=== PATIENT | female | born 1955 ===

== ENCOUNTER 2023-02-24 11:51 | Day surgery (SDC) | payer MEDICARE, BC, SELFPAY ==
--- NOTE | 2023-02-24 | PATH_ITS ---
[facility] Accession Number: [id number] No. of containers..03 Tissue . 01 Material submitted: . PART A: colon - DESCENDING COLON PART B: colon - RECTO-SIGMOID POLYP 15 PART C: colon - RECTO-SIGMOID 12 . 01 Diagnosis: A. Descending Colon, Biopsy: Colonic mucosa with mild melanosis coli. Negative for active, chronic, and microscopic colitis. Negative for dysplasia and malignancy. . B. Rectosigmoid Colon Polyp At 15 cm: Tubulovillous adenoma. Negative for high-grade dysplasia or malignancy. . C. Rectosigmoid Colon Polyp At 12 cm: Tubular adenoma. [facility] 02/28/2023 1155 Local . 01 Electronically signed: . Usman Urena MD, PhD, Pathologist NPI- [id number] . 01 Gross description: . Part A: DESCENDING COLON: Received in formalin is 1 fragment(s) of moon, soft tissue measuring 0.5 x 0.4 x 0.1 cm submitted entirely in 1 cassette(s) Part B: RECTO-SIGMOID POLYP 15: Received in formalin is 1 fragment(s) of moon, soft tissue measuring 2.0 x 0.8 x 0.7 cm which is serially sectioned and submitted entirely in 1 cassette(s) Part C: RECTO-SIGMOID 12: Received in formalin is 1 fragment(s) of moon, soft tissue measuring 0.9 x 0.7 x 0.5 cm which is bisected and submitted entirely in 1 cassette(s) /PSYCHIATRIC 02/26/2023 1215 Local . 01 Pathologist provided ICD-10: K52.89, D12.7 . 01 CPT . 844302, 022739, 215922 Specimen Comment: A courtesy copy of this report has been sent to [phone] Performed at: 01 [facility] [address], [place], [place] [id number] MD Kwabena Aguilera MD Phone: [phone]
[2023-02-24 12:23] VITALS: BP 154/65; PULSE 56; RESP 20; TEMP 36.6; O2SAT 98; BMI 26.6
[2023-02-24] MEDS: LACTATED RINGERS 1,000 ML 100 ML IV (12:41)
--- NOTE | 2023-02-24 12:43 | PM.HP.1 ---
History of Present Illness History of Present Illness Date Patient Seen: 02/24/23 Time Patient Seen: 12:43 Chief complaint: SDC Narrative: Presents for screening colonoscopy. Family history of colon cancer in her mom. Her last colonoscopy was in 2007. No findings at that time. [facility]LY [facility], [facility] Social History household members: spouse Smoking Status: Former smoker alcohol intake: current Meds Home Medications and Allergies Home Medications Medication Instructions Recorded Confirmed Type No Known Home Medications 02/24/23 02/24/23 History Allergies Allergy/AdvReac Type Severity Reaction Status Date / Time No Known Drug Allergies Allergy Verified 02/24/23 12:22 Review of Systems Review of Systems ROS: Yes All systems reviewed with the patient and are negative except as otherwise documented Exam Vital Signs (past 8 hours): - 02/24/23 12:23 Temperature 97.9 F Pulse Rate 56 L Respiratory Rate 20 Blood Pressure 154/65 H Pulse Oximetry 98 Oxygen Delivery Method Room Air Oxygen Delivery Method Room Air Const General: cooperative HENMT Head: normal to inspection Eyes General: appearance normal, both eyes and all related structures Neck Neck: normal visual inspection Chest Chest: normal inspection of the chest Resp Effort & Inspection: normal respiratory effort Cardio Rate: regular rate GI Inspection: normal to inspection Skin General: no rashes or lesions noted Neuro General: patient alert and patient awake Extrem General: normal to inspection and no pedal edema Psych Appearance: grossly normal Assessment & Plan Assessment & Plan narrative: 67-year-old female with a family history of colon cancer. Screening colonoscopy is pursued today.
--- NOTE | 2023-02-24 12:45 | PM.PREOP ---
Pre-operative Note Interval Note History & Physical reviewed/Exam performed by Physician: Yes Changes to H&P: No ASA Class (for procedural sedation): I
--- NOTE | 2023-02-24 14:14 | P.OP.COLON_ITS ---
Operative Date/Time/Diagnoses Date of procedure: 02/24/23 Time of procedure: 14:14 Pre-op diagnosis: Family history of colon cancer. Post-op diagnosis: same Procedure & Clinicians Study performed: Colonoscopy with hot snare polypectomy and submucosal tattoo injection Same procedure as scheduled: Yes Indications: Family history of colon cancer Surgeon: Flaco Moreno Procedure Notes SCOAP/Timeout: Done Procedure in detail: After the risks and benefits were explained, written and verbal informed consent was obtained. The patient was brought into the procedure room and placed into the left lateral decubitus position. Please see anesthesia notes for sedation details. Digital rectal examination was accomplished. The scope was introduced into the patient and advanced under direct visualization to the cecum as id entified by the appendiceal orifice and ileocecal valve. The scope was slowly withdrawn to carefully examine the mucosa for any defects or lesions. Comprehensive imaging was accomplished throughout the rectum including the dentate line. The colon was decompressed, the scope was then removed from the patient who tolerated the procedure well. Pediatric colonoscope Bowel prep adequate Scope withdrawal time: 17 minutes Sedation minutes: 24 Complications: none Impression: In the proximal sigmoid there was a 8 mm polyp removed with hot snare. This was sessile. For the sake of identification, I believe this polyp was labeled ?descending colon?. In the rectosigmoid at about 15 cm from the anal verge was an approximately 20 mm pedunculated polyp removed with hot snare. A small Marta ink tattoo was placed adjacent to the polypectomy site. At about 12 cm from the anal verge there was a 2nd 10 mm pedunculated polyp removed with hot snare and submitted separately. No additional mucosal pathology was appreciated throughout. Grade 2 hemorrhoids were noted on direct views. Endoscopic diagnosis 1. Grade 2 hemorrhoids 2. Multiple colon polyps Post-procedure Plan for aftercare: 1. Await histopathology 2. Repeat colonoscopy will likely be suggested for 3 years. Disposition: PACU
[2023-02-24 14:16] VITALS: BP 109/42; PULSE 60; RESP 19; TEMP 36.2; O2SAT 96
[2023-02-24 14:21] VITALS: BP 120/52; PULSE 53; RESP 19; O2SAT 97
[2023-02-24 14:26] VITALS: BP 114/50; PULSE 56; RESP 20; TEMP 36.3; O2SAT 99
[2023-02-24 14:33] VITALS: BP 133/50; PULSE 52; RESP 12; TEMP 36.4; O2SAT 99
== END 2023-02-24 14:50 | disposition home or self-care (01) ==
PROVIDERS: PCP Physician Assistant; Referring Provider Internal Medicine Gastroenterology; Visit Provider Internal Medicine Gastroenterology
PROC: 0DJD8ZZ Inspection of Lower Intestinal Tract, Via Natural or Artificial Opening Endoscopic (ICD-10-PCS; CPT 45378; principal; 2023-02-24 13:00)
DX: Z12.11 Encounter for screening for malignant neoplasm of colon (principal); Z80.0 Family history of malignant neoplasm of digestive organs; K64.1 Second degree hemorrhoids; K63.89 Other specified diseases of intestine; D12.7 Benign neoplasm of rectosigmoid junction
CPT/HCPCS: 45385; 45381; J2704